=== PATIENT | female | born 1955 | race Caucasian/White ===

== ENCOUNTER 2021-11-27 19:12 | Emergency (ER) | payer BC, SELFPAY ==
--- NOTE | 2021-11-27 19:16 | ED.FEMALEGU ---
HPI - Female Genitourinary General Chief complaint: Urogenital-Female Stated complaint: poss uti Time Seen by Provider: 11/27/21 19:16 Source: patient Mode of arrival: ambulatory Limitations: no limitations History of Present Illness HPI Narrative: Ms. Ambrocio is a 66-year-old female patient presenting to the clinic today with possible UTI x1 day Patient reports she is having burning with blood in her urine. Denies any fever, chills, lower abdominal pain, or flank pain Related Data Home Medications Medication Instructions Recorded Confirmed atorvastatin 20 mg tablet 20 mg PO DAILY 11/27/21 11/27/21 doxycycline hyclate 100 mg capsule 100 mg PO DAILY 11/27/21 11/27/21 ezetimibe 10 mg tablet 10 mg PO DAILY 11/27/21 11/27/21 lisinopril 5 mg tablet 5 mg PO DAILY 11/27/21 11/27/21 metformin 500 mg tablet,extended 2,000 mg PO DAILY 11/27/21 11/27/21 release 24 hr metoprolol succinate 50 mg 50 mg PO DAILY 11/27/21 11/27/21 tablet,extended release 24 hr ropinirole 2 mg tablet 2 mg PO HS 11/27/21 11/27/21 venlafaxine 150 mg 150 mg PO DAILY 11/27/21 11/27/21 capsule,extended release 24 hr Allergies Allergy/AdvReac Type Severity Reaction Status Date / Time clindamycin Allergy Mild SWELLING Unverified 11/27/21 19:28 OF FACE Penicillins Allergy Mild HIVES? Unverified 11/27/21 19:28 FACIAL SWELLING IN CHILDHOOD Review of Systems Review of Systems: Pertinent positives per HPI. Patient denies any fever, chills, rash, headache, visual changes, dizziness, cough, runny nose, sore throat, shortness of breath, chest pain, palpitations, nausea, vomiting, diarrhea, constipation, abdominal pain. PMFSH Comments At the time of my signature, I reviewed and agree with the nursing past medical, surgical, social, and family history. There is no relevant family history pertinent to the patient complaint. Exam Narrative: General: Well-developed, well nourished, in no apparent distress. Head: Normocephalic, atraumatic. Cardio: Regular rate and rhythm, s1 and s2 normal, no murmur appreciated. Resp: Clear to auscultation bilaterally, no rhonchi, rales, wheezing or rubs. Abdomen: Soft, pliable, bowel sounds present in all quadrants, non-tender to palpation, no organomegly, no CVAT tenderness. Course Course Emergency Course: Portions of this record may have been created with voice recognition software. Level of Care: Express Care Visit Vital Signs Vital signs: Vital signs reviewed MDM - Female Genitourinary MDM Narrative Medical decision making narrative: At time of assessment patient is resting comfortably on the exam table. Patient is having burning and blood in her urine. UA was obtained and was positive for leukocytes, nitrates, protein,-uro-bili, and blood with a trace of ketones. Patient was placed on a prescription for some Cipro as Bactrim can cause some adverse reactions with her lisinopril. Supportive measures were discussed with the patient she voiced understanding of discharge instructions. Differential Diagnosis Differential diagnosis: Likely urinary tract infection, cystitis and other (Interstitial cystitis, overactive bladder) Discharge Plan Discharge Clinical Impression: Urinary tract infection Patient Disposition: Home, Self-Care Condition: Stable Instructions: Antibiotic Form, Urinary Tract Infection in Women (ED) Additional Instructions: take antibiotics as prescribed increase fluids and stay well hydrated Wipe front to back. May use wet wipes. Avoid tub baths If sexually active- pee before and after intercourse. Wear cotton panties Avoid tight clothing up against the genitals Follow up with your PCP in 1 week if symptoms persist. Prescriptions: New ciprofloxacin HCl 500 mg tablet 500 mg PO Q12H 7 Days Qty: 14 0RF No Action doxycycline hyclate 100 mg capsule 100 mg PO DAILY atorvastatin 20 mg tablet 20 mg PO DAILY metoprol
[2021-11-27 19:17] VITALS: BP 123/52; PULSE 80; RESP 18; TEMP 36.6; O2SAT 100
== END 2021-11-27 19:43 | disposition home or self-care (01) ==
PROVIDERS: Emergency Provider Nurse Practitioner Family; PCP Internal Medicine
DX: N39.0 Urinary tract infection, site not specified (principal); E78.00 Pure hypercholesterolemia, unspecified; I10 Essential (primary) hypertension; I34.1 Nonrheumatic mitral (valve) prolapse; K21.9 Gastro-esophageal reflux disease without esophagitis; F41.9 Anxiety disorder, unspecified
CPT/HCPCS: 81003; 87077; 87086; 87186; 99203; G0463